=== PATIENT | male | born 1950 | race Hispanic/Latino ===

== ENCOUNTER → 2018-05-02 | Outpatient (CLI) | payer MEDICARE | END | disposition home or self-care (01) | LOC: RAH 08:07 | PROVIDERS: ATTEND Internal Medicine Cardiovascular Disease | DX: I65.23 Occlusion and stenosis of bilateral carotid arteries (principal); I99.8 Other disorder of circulatory system; I10 Essential (primary) hypertension | CPT/HCPCS: 78452; 93017; A9500 ×2 ==

== ENCOUNTER 2018-07-04 08:10 | Day surgery (SDC) | payer OTHER ==
[2018-07-01 12:12] LABS: BASOPHILS % (AUTO) 0.6 % (0.0-5.0); EOSINOPHILS % (AUTO) 2.6 % (0.0-8.0); HEMATOCRIT 39.5 % (42-54); LYMPHOCYTES % (AUTO) 33.4 % (21.0-51.0); MEAN CORPUSCULAR HEMOGLOBIN 27.5 pg (27.0-33.0); MEAN CORPUSCULAR HGB CONC 33.1 g/dL (32.0-36.0); NEUTROPHILS % (AUTO) 57.4 % (40.0-77.0); PLATELET COUNT (AUTO) 249 K/uL (130-400); RED BLOOD CELL COUNT(AUTO) 4.76 MIL/uL (4.50-6.20); RED CELL DISTRIBUTION WIDTH 13.6 % (11.0-15.5); WHITE BLOOD COUNT (AUTO) 5.9 K/uL (4.8-10.8)
[2018-07-01 12:24] LABS: CREATININE 0.7 mg/dL (0.5-1.5); INR 1.01 (0.85-1.15); PARTIAL THROMBOPLASTIN TIME 26.8 SEC (26.3-35.5); POTASSIUM 4.1 mmol/L (3.5-5.1); PROTHROMBIN TIME 10.6 SEC (9.6-11.6)
[2018-07-01 12:42] VITALS: BP 145/70
[2018-07-01 13:08] LABS: APPEARANCE,URINE Clear (CLEAR); BILIRUBIN,URINE Negative (NEGATIVE); COLOR,URINE Yellow (YELLOW); GLUCOSE, URINE (UA) Negative (NEGATIVE); KETONES,URINE Negative (NEGATIVE); LEUKOCYTE ESTERASE ,URINE Negative (NEGATIVE); NITRATE,URINE Negative (NEGATIVE); OCCULT BLOOD,URINE Negative (NEGATIVE); PROTEIN,URINE Negative (NEGATIVE)
[~2018-07-04] VITALS: Ht 177.8 cm; Wt 90.0 kg
[2018-07-04] VITALS (10 sets, daily range): BP systolic 129–153; BP diastolic 59–84
[~2018-07-04 08:10] MED LIST: CARB-38 PO; CLOP75TA14 PO; EZET10TA26 PO; FINA5TAB41 PO; LOSA100T58 PO; METF-446 PO; NITR0.4T50 SL; PROBIOTICS; ROPI2TAB2 PO; SODIUM CHLORIDE 0.9% 500ML 500 ML IV SCH; TAMS0.4C32 PO; VIT1CAPS47 PO; b12 PO
[2018-07-04] MEDS ORDERED: SODIUM CHLORIDE 0.9% 1000ML 1,000 ML IV ONE (08:48)
[2018-07-04] MEDS ORDERED: NITROGLYCERIN 5 MG/ML 10 ML VIAL IV ONE (09:58)
[2018-07-04] MEDS ORDERED: LIDOCAINE HCL-MPF 2% 10ML AMP IJ ONE (09:58)
[2018-07-04] MEDS ORDERED: IOHEXOL 350 MG/ML 100ML INFUS..BTL IV ONE (09:59)
[2018-07-04] MEDS ORDERED: IOHEXOL-350 50ML VIAL IV ONE (09:59)
[2018-07-04] MEDS ORDERED: MIDAZOLAM HCL 1 MG/ML 2ML VIAL ONE (10:56)
[2018-07-04] MEDS ORDERED: LABETALOL HCL 5 MG/ML 20ML VIAL IV ONE (11:08)
[2018-07-04] MEDS ORDERED: BIVALIRUDIN 250 MG/VIAL IV ONE (11:14)
[2018-07-04] MEDS ORDERED: SODIUM CHLORIDE 0.9% 1000ML 1,000 ML IV SCH (11:39)
[2018-07-04] MEDS ORDERED: ACETAMINOPHEN-CODEINE 300/30MG TAB PO PRN ×2 (11:45)
== END 2018-07-04 16:00 | disposition home or self-care (01) ==
LOC: DAH 08:10
PROVIDERS: ATTEND Internal Medicine Cardiovascular Disease
DX: I25.110 Atherosclerotic heart disease of native coronary artery with unstable angina pectoris (principal); Z95.5 Presence of coronary angioplasty implant and graft; Z79.899 Other long term (current) drug therapy; Z79.01 Long term (current) use of anticoagulants; I70.213 Atherosclerosis of native arteries of extremities with intermittent claudication, bilateral legs; E78.5 Hyperlipidemia, unspecified; I65.23 Occlusion and stenosis of bilateral carotid arteries; E11.51 Type 2 diabetes mellitus with diabetic peripheral angiopathy without gangrene; I10 Essential (primary) hypertension; Z82.49 Family history of ischemic heart disease and other diseases of the circulatory system; Z88.8 Allergy status to other drugs, medicaments and biological substances
CPT/HCPCS: 36415; 71045; 80048; 81003; 82948 ×2; 85025; 85610; 85730; 93005; 93458; A4606; C1760; C1894; J1644; J2250; J3490 ×3; J7030; Q9965 ×2; Q9967 ×2; 99156; 99157; J0583

== ENCOUNTER 2018-10-04 05:28 | Day surgery (SDC) | payer OTHER ==
[~2018-10-04] VITALS: Ht 165.1 cm; Wt 86.0 kg
[~2018-10-04 05:28] MED LIST changes: -EZET10TA26 PO; +EZET10TA48 PO; -SODIUM CHLORIDE 0.9% 500ML 500 ML IV SCH
[2018-10-04] MEDS ORDERED: SODIUM CHLORIDE 0.9% 1000ML 1,000 ML IV ONE (05:50)
[2018-10-04 06:14] VITALS: BP 139/73
[2018-10-04] MEDS ORDERED: PROPOFOL 1000 MG/100 ML 100 ML IV ONE (06:41)
[2018-10-04] MEDS ORDERED: LIDOCAINE HCL-MPF 2% 5ML VIAL ONE (06:41)
[2018-10-04] MEDS ORDERED: EPHEDRINE SULFATE 50 MG/ML AMPULE ONE (07:01)
[2018-10-04 07:08] VITALS: BP 108/53
[2018-10-04 07:13] VITALS: BP 113/59
[2018-10-04 07:18] VITALS: BP 126/64
[2018-10-04 07:23] VITALS: BP 128/63
[2018-10-04 07:28] VITALS: BP 119/60
--- NOTE | 2018-10-04 08:00 | NUR ---
PLAVIX PER MATTEO VILLAGRAN, DR. MILLER STATED TO HAVE PATIENT RESUME PLAVIX IN 48 HOURS. CALLED PT, SPOKE WITH , INSTRUCTED FOR PT TO RESUME PLAVIX IN 48 HOURS. VERBALIZED UNDERSTANDING.
== END 2018-10-04 07:45 | disposition home or self-care (01) ==
LOC: DAH 05:28 → ENDO 05:28
PROVIDERS: ATTEND Internal Medicine
DX: D12.0 Benign neoplasm of cecum (principal); D12.2 Benign neoplasm of ascending colon; K29.50 Unspecified chronic gastritis without bleeding; K64.0 First degree hemorrhoids; K57.30 Diverticulosis of large intestine without perforation or abscess without bleeding; Z86.010 Personal history of colon polyps; K21.0 Gastro-esophageal reflux disease with esophagitis; E78.5 Hyperlipidemia, unspecified; Z86.73 Personal history of transient ischemic attack (TIA), and cerebral infarction without residual deficits; I10 Essential (primary) hypertension
CPT/HCPCS: 43239; 45380; 82948 ×3; 93005; A4606; J2704; J3490 ×2; J7030

== ENCOUNTER 2019-11-07 05:53 | Day surgery (SDC) | payer MEDICARE ==
[~2019-11-07] VITALS: Ht 177.8 cm; Wt 90.7 kg
[~2019-11-07 05:53] MED LIST changes: -EZET10TA48 PO; -PROBIOTICS; -ROPI2TAB2 PO; +ROPI2TAB7 PO; -b12 PO
[2019-11-07] MEDS ORDERED: SODIUM CHLORIDE 0.9% 1000ML 1,000 ML IV ONE (06:12)
[2019-11-07 06:18] VITALS: BP 147/87
[2019-11-07] MEDS ORDERED: PHENYLEPHRINE HCL 10 MG/ML 1ML VIAL IV ONE (07:14)
[2019-11-07] MEDS ORDERED: EPINEPHRINE 1 MG/ML AMPULE ONE (07:14)
[2019-11-07] MEDS ORDERED: MIDAZOLAM HCL 1 MG/ML 2ML VIAL ONE (07:14)
[2019-11-07] MEDS ORDERED: LIDOCAINE HCL 1% 20 ML VIAL ONE (07:14)
[2019-11-07] MEDS ORDERED: PROPOFOL 10 MG/ML 20ML VIAL IV ONE (07:14)
[2019-11-07 07:40] VITALS: BP 109/64
[2019-11-07 07:45] VITALS: BP 122/68
[2019-11-07 07:50] VITALS: BP 124/68
[2019-11-07 07:55] VITALS: BP 128/69
[2020-02-15] MEDS ORDERED: EVOL140S2 SQ (17:29)
== END 2019-11-07 08:13 | disposition home or self-care (01) ==
LOC: DAH 05:53 → ENDO 05:53
PROVIDERS: ATTEND Internal Medicine
DX: K29.50 Unspecified chronic gastritis without bleeding (principal); K31.89 Other diseases of stomach and duodenum; K59.04 Chronic idiopathic constipation; Z87.19 Personal history of other diseases of the digestive system; Z11.59 Encounter for screening for other viral diseases; I10 Essential (primary) hypertension; E11.9 Type 2 diabetes mellitus without complications; E78.5 Hyperlipidemia, unspecified; K21.9 Gastro-esophageal reflux disease without esophagitis; G20 Parkinson's disease; Z86.73 Personal history of transient ischemic attack (TIA), and cerebral infarction without residual deficits; I25.10 Atherosclerotic heart disease of native coronary artery without angina pectoris; Z86.010 Personal history of colon polyps
CPT/HCPCS: 36415; 43239; 82948 ×2; 93005; A4215; A4221; A4222; A4223; A4606; A4620; A4657; A4663; J0171; J2250; J2370; J2704; J7030; U0003; 43200

== ENCOUNTER → 2020-02-07 | Outpatient (CLI) | payer MEDICARE ==
[~2020-02-07] MED LIST changes: +AMLO5TAB9 PO; +CYAN100099 PO; +DUTA0.5C18 PO; +EVOL140S2 SQ; +HYDR-3421 PO; +HYDR25TA PO; +ISOS60TA4 PO; +LINA145C PO; +LOSA25TA2 PO; +METO-391 PO; +PANT40TA54 PO; +TRAZ-185 PO; +[UNRECOGNIZED DRUG - CODE] PO
== END | disposition home or self-care (01) ==
LOC: SHCH 08:46
PROVIDERS: ATTEND Internal Medicine Cardiovascular Disease
DX: I65.21 Occlusion and stenosis of right carotid artery (principal); R97.0 Elevated carcinoembryonic antigen [CEA]; Z95.828 Presence of other vascular implants and grafts
CPT/HCPCS: 93880

== ENCOUNTER 2020-02-16 07:30 | Day surgery (SDC) | payer MEDICARE ==
[2020-02-13 10:00] VITALS: BP 110/64
[2020-02-13 11:11] LABS: BASOPHILS % (AUTO) 0.2 % (0.0-5.0); EOSINOPHILS % (AUTO) 3.5 % (0.0-8.0); HEMATOCRIT 35.9 % (42-54); LYMPHOCYTES % (AUTO) 30.3 % (21.0-51.0); MEAN CORPUSCULAR HEMOGLOBIN 28.3 pg (27.0-33.0); MEAN CORPUSCULAR HGB CONC 33.7 g/dL (32.0-36.0); MEAN CORPUSCULAR VOLUME 83.9 fL (79-99); MONOCYTES % (AUTO) 6.1 % (3.0-13.0); NEUTROPHILS % (AUTO) 59.7 % (40.0-77.0); PLATELET COUNT (AUTO) 245 K/uL (130-400); RED BLOOD CELL COUNT(AUTO) 4.28 MIL/uL (4.50-6.20); WHITE BLOOD COUNT (AUTO) 6.3 K/uL (4.8-10.8)
[2020-02-13 11:14] LABS: CREATININE 0.8 mg/dL (0.5-1.5); POTASSIUM 4.1 mmol/L (3.5-5.1)
[2020-02-15 17:09] VITALS: BP 110/64
[~2020-02-16] VITALS: Ht 177.8 cm; Wt 89.9 kg
[2020-02-16] VITALS (11 sets, daily range): BP systolic 101–177; BP diastolic 50–92
[2020-02-16] MEDS: CEFAZOLIN SODIUM 1 GM VIAL IVP SCH ×2 (06:00→11:41)
[~2020-02-16 07:30] MED LIST changes: -AMLO5TAB9 PO; -CYAN100099 PO; -DUTA0.5C18 PO; -HYDR-3421 PO; -HYDR25TA PO; -ISOS60TA4 PO; -LINA145C PO; -LOSA25TA2 PO; -METO-391 PO; -PANT40TA54 PO; +SODIUM CHLORIDE 0.9% 500ML 500 ML IV SCH; -TRAZ-185 PO; -[UNRECOGNIZED DRUG - CODE] PO
[2020-02-16] MEDS ORDERED: SODIUM CHLORIDE 0.9% 1000ML 1,000 ML IV ONE (08:06)
[2020-02-16] MEDS ORDERED: HYDR-3421 PO (08:39)
[2020-02-16] MEDS ORDERED: TRAZ-185 PO (08:39)
[2020-02-16] MEDS ORDERED: HYDR25TA PO (08:39)
[2020-02-16] MEDS ORDERED: METO-391 PO (08:39)
[2020-02-16] MEDS ORDERED: LOSA25TA2 PO (08:39)
[2020-02-16] MEDS ORDERED: AMLO-257 PO (08:39)
[2020-02-16] MEDS ORDERED: PANT40TA54 PO (08:39)
[2020-02-16] MEDS ORDERED: LINA145C PO (08:39)
[2020-02-16] MEDS ORDERED: DUTA0.5C18 PO (08:39)
[2020-02-16] MEDS ORDERED: ISOS60TA4 PO (08:39)
[2020-02-16] MEDS ORDERED: CYAN100099 PO (08:39)
[2020-02-16] MEDS ORDERED: ROPI2TAB7 PO (08:43)
[2020-02-16] MEDS ORDERED: [UNRECOGNIZED DRUG - CODE] PO (08:44)
[2020-02-16] MEDS ORDERED: BUPIVACAINE/PF 0.5% 10ML VIAL ONE (10:00)
[2020-02-16] MEDS ORDERED: FENTANYL CITRATE PF 50 MCG/1 ML 2ML VIAL ONE (11:34)
[2020-02-16] MEDS ORDERED: MIDAZOLAM HCL 1 MG/ML 2ML VIAL ONE (11:34)
[2020-02-16] MEDS ORDERED: PROPOFOL 10 MG/ML 20ML VIAL IV ONE (11:38)
[2020-02-16] MEDS ORDERED: LIDOCAINE HCL 1% 20 ML VIAL ONE (11:43)
== END 2020-02-16 13:37 | disposition home or self-care (01) ==
LOC: DAH 07:30
PROVIDERS: ATTEND Surgery
DX: L72.3 Sebaceous cyst (principal); Z20.828 Contact with and (suspected) exposure to other viral communicable diseases; E10.9 Type 1 diabetes mellitus without complications; I10 Essential (primary) hypertension; E78.00 Pure hypercholesterolemia, unspecified
CPT/HCPCS: 11404; 36415; 80048; 82948 ×2; 85025; 88304; 88341; 88342; 93005; A4213; A4215; A4221; A4222; A4223; A4452; A4663; A4930; A6260; C9803; J0690; J2250; J2704; J3010; J3490; J7030 ×2; J7040; U0003

== ENCOUNTER 2020-05-13 17:58 | Emergency (ER) | payer MEDICARE ==
[~2020-05-13 17:58] MED LIST changes: +AMLO-257 PO; -CARB-38 PO; +CYAN100099 PO; +DUTA0.5C37 PO; -FINA5TAB41 PO; +HYDR-3421 PO; +HYDR25TA PO; +ISOS60TA77 PO; +LINA145C PO; -LOSA100T58 PO; +LOSA25TA2 PO; +METO-391 PO; +PANT40TA54 PO; -SODIUM CHLORIDE 0.9% 500ML 500 ML IV SCH; +TRAZ-185 PO; -VIT1CAPS47 PO; +[UNRECOGNIZED DRUG - CODE] PO
[2020-05-13 18:47] LABS: BASOPHILS % (AUTO) 0.3 % (0.0-5.0); EOSINOPHILS % (AUTO) 2.5 % (0.0-8.0); HEMATOCRIT 39.2 % (42-54); MEAN CORPUSCULAR HEMOGLOBIN 27.8 pg (27.0-33.0); MEAN CORPUSCULAR HGB CONC 33.7 g/dL (32.0-36.0); MEAN CORPUSCULAR VOLUME 82.7 fL (79-99); MONOCYTES % (AUTO) 6.5 % (3.0-13.0); NEUTROPHILS % (AUTO) 64.5 % (40.0-77.0); PLATELET COUNT (AUTO) 260 K/uL (130-400); RED BLOOD CELL COUNT(AUTO) 4.74 MIL/uL (4.50-6.20); RED CELL DISTRIBUTION WIDTH 12.3 % (11.0-15.5); WHITE BLOOD COUNT (AUTO) 8.7 K/uL (4.8-10.8)
[2020-05-13 19:04] LABS: INR 0.99 (0.85-1.15); PROTHROMBIN TIME 10.6 SEC (9.6-11.6)
[2020-05-13 19:05] LABS: PARTIAL THROMBOPLASTIN TIME 24.7 SEC (26.3-35.5)
[2020-05-13 19:10] LABS: APPEARANCE,URINE TURBID (CLEAR); BILIRUBIN,URINE SMALL (NEGATIVE); COLOR,URINE RED (YELLOW); GLUCOSE, URINE (UA) NEGATIVE (NEGATIVE); KETONES,URINE 5 mg/dL (NEGATIVE); LEUKOCYTE ESTERASE ,URINE NEGATIVE (NEGATIVE); NITRATE,URINE NEGATIVE (NEGATIVE); OCCULT BLOOD,URINE LARGE (NEGATIVE); PROTEIN,URINE 100 mg/dL (NEGATIVE)
[2020-05-13 19:13] LABS: ALBUMIN 3.9 g/dL (3.5-5.0); BILIRUBIN,TOTAL 0.5 mg/dL (0.2-1.0); CREATININE 0.8 mg/dL (0.5-1.5); POTASSIUM 4.1 mmol/L (3.5-5.1)
[2020-05-13 19:15] LABS: BACTERIA,URINE Few /HPF (None Seen); RBC,URINE TNTC /HPF (0-1); WBC,URINE 0-1 /HPF (0-1)
[2020-05-13 19:16] LABS: SQUAMOUS EPITHELIAL CELL,UR None Seen /HPF (0-2)
[2020-05-13] MEDS ORDERED: CEPHALEXIN 500 MG CAPSULE ONE (21:15)
== END 2020-05-13 21:20 | disposition home or self-care (01) ==
LOC: EDH 17:58
DX: R31.0 Gross hematuria (principal); S70.11XA Contusion of right thigh, initial encounter; E11.9 Type 2 diabetes mellitus without complications; I10 Essential (primary) hypertension; W18.39XA Other fall on same level, initial encounter; Y93.89 Activity, other specified; Y92.89 Other specified places as the place of occurrence of the external cause; Y99.8 Other external cause status
CPT/HCPCS: 36415; 74176; 80053; 81001; 85025; 85610; 85730; 87088

== ENCOUNTER 2021-07-18 07:18 | Day surgery (SDC) | payer MEDICARE ==
[2021-07-16 15:22] LABS: BASOPHILS % (AUTO) 0.2 % (0.0-5.0); EOSINOPHILS % (AUTO) 1.4 % (0.0-8.0); HEMATOCRIT 36.8 % (42-54); LYMPHOCYTES % (AUTO) 20.1 % (21.0-51.0); MEAN CORPUSCULAR HGB CONC 32.6 g/dL (32.0-36.0); MEAN CORPUSCULAR VOLUME 82.9 fL (79-99); MONOCYTES % (AUTO) 5.9 % (3.0-13.0); NEUTROPHILS % (AUTO) 72.2 % (40.0-77.0); PLATELET COUNT (AUTO) 244 K/uL (130-400); RED BLOOD CELL COUNT(AUTO) 4.44 MIL/uL (4.50-6.20); RED CELL DISTRIBUTION WIDTH 12.9 % (11.0-15.5); WHITE BLOOD COUNT (AUTO) 8.6 K/uL (4.8-10.8)
[2021-07-16 15:31] LABS: APPEARANCE,URINE Clear (CLEAR); BILIRUBIN,URINE Negative (NEGATIVE); COLOR,URINE Dark Yellow (YELLOW); GLUCOSE, URINE (UA) Negative (NEGATIVE); KETONES,URINE Trace mg/dL (NEGATIVE); LEUKOCYTE ESTERASE ,URINE Trace (NEGATIVE); NITRATE,URINE Negative (NEGATIVE); OCCULT BLOOD,URINE Negative (NEGATIVE); PROTEIN,URINE Negative (NEGATIVE)
[2021-07-16 15:34] LABS: INR 1.13 (0.85-1.15); PROTHROMBIN TIME 12.2 SEC (9.6-11.6)
[2021-07-16 15:36] LABS: CREATININE 1.3 mg/dL (0.5-1.5); PARTIAL THROMBOPLASTIN TIME 25.2 SEC (26.3-35.5); POTASSIUM 4.3 mmol/L (3.5-5.1)
[2021-07-16 15:46] LABS: BACTERIA,URINE Rare /HPF (None Seen); RBC,URINE 0-1 /HPF (0-1); SQUAMOUS EPITHELIAL CELL,UR 0-2 /HPF (0-2); WBC,URINE 0-1 /HPF (0-1)
[2021-07-17 13:50] VITALS: BP 162/79
[~2021-07-18] VITALS: Ht 177.8 cm; Wt 92.8 kg
[2021-07-18] VITALS (8 sets, daily range): BP systolic 110–137; BP diastolic 60–76
[~2021-07-18 07:18] MED LIST changes: +0.9% NACL 500ML IV.SOLN 500 ML IV SCH; +AEC81 PO; -DUTA0.5C37 PO; -EVOL140S2 SQ; +FENO145T26 PO; +FINA5TAB41 PO; -HYDR-3421 PO; -HYDR25TA PO; -LOSA25TA2 PO; +LOSA50TA64 PO; -NITR0.4T50 SL; +RANO500T6 PO; -TRAZ-185 PO
[2021-07-18] MEDS ORDERED: 0.9%NACL 1000ML 1,000 ML IV ONE (07:52)
[2021-07-18] MEDS ORDERED: IOHEXOL-350 50ML VIAL IV ONE (08:53)
[2021-07-18] MEDS ORDERED: IOHEXOL-350 75 ML VIAL IV ONE (08:53)
[2021-07-18] MEDS ORDERED: MIDAZOLAM HCL 1 MG/ML 2ML VIAL ONE (08:53)
[2021-07-18] MEDS ORDERED: FENTANYL CITRATE PF 50 MCG/1 ML 2ML VIAL ONE (08:53)
[2021-07-18] MEDS ORDERED: LIDOCAINE HCL 400MG/20ML VIAL ONE (08:54)
[2021-07-18] MEDS ORDERED: NITROGLYCERIN 50MG VIAL ONE (08:54)
[2021-07-18] MEDS ORDERED: 0.9%NACL 1000ML 1,000 ML IV SCH (11:00)
[2021-07-18] MEDS ORDERED: DEXTROSE 50%-WATER 50 ML DISP.SYRIN IV PRN (11:00)
[2021-07-18] MEDS ORDERED: GLUCAGON 1MG KIT 1 MG ML IM PRN (11:00)
[2021-07-18] MEDS ORDERED: INSULIN HUMULIN R 100 UNIT/ML 3ML SQ SCH (11:30)
== END 2021-07-18 14:50 | disposition home or self-care (01) ==
LOC: DAH 07:18
PROVIDERS: ATTEND Internal Medicine Cardiovascular Disease
DX: I25.118 Atherosclerotic heart disease of native coronary artery with other forms of angina pectoris (principal); I25.82 Chronic total occlusion of coronary artery; T82.855A Stenosis of coronary artery stent, initial encounter; I77.9 Disorder of arteries and arterioles, unspecified; I10 Essential (primary) hypertension; G20 Parkinson's disease; E78.2 Mixed hyperlipidemia; E11.59 Type 2 diabetes mellitus with other circulatory complications; Z86.73 Personal history of transient ischemic attack (TIA), and cerebral infarction without residual deficits; Z95.5 Presence of coronary angioplasty implant and graft; Z79.01 Long term (current) use of anticoagulants; Z79.84 Long term (current) use of oral hypoglycemic drugs; Z79.82 Long term (current) use of aspirin; Y83.8 Other surgical procedures as the cause of abnormal reaction of the patient, or of later complication, without mention of misadventure at the time of the procedure
CPT/HCPCS: 36415; 71045; 80048; 81001; 82948 ×2; 85025; 85610; 85730; 93458; A4215; A4216; A4221; A4222; A4223 ×3; A4606; A4663; C1760; C1894 ×2; J1644; J2250; J3010; J3490; J7030; Q9965 ×2; Q9967 ×2; 93005; 96360; 96361; 99156; 99157

== ENCOUNTER 2021-07-31 09:00 | Inpatient (IN) | payer MEDICARE ==
[~2021-07-31] VITALS: Ht 177.8 cm; Wt 80.3 kg
[~2021-07-31 09:00] MED LIST changes: -0.9% NACL 500ML IV.SOLN 500 ML IV SCH; -CLOP75TA14 PO
[2021-07-31 11:36] LABS: ABG BASE EXCESS -1.1 mmol/L (-2.0-3.0); ABG HCO3 23.5 mmol/L (21.0-28.0); ABG OXYGEN SATURATION 96.6 % (95.0-99.0); ABG PCO2 39 mmHg (35-48)
[2021-07-31 12:02] LABS: BASOPHILS % (AUTO) 0.5 % (0.0-5.0); EOSINOPHILS % (AUTO) 2.6 % (0.0-8.0); HEMATOCRIT 39.6 % (42-54); LYMPHOCYTES % (AUTO) 26.2 % (21.0-51.0); MEAN CORPUSCULAR HEMOGLOBIN 27.9 pg (27.0-33.0); MEAN CORPUSCULAR HGB CONC 32.6 g/dL (32.0-36.0); MEAN CORPUSCULAR VOLUME 85.5 fL (79-99); MONOCYTES % (AUTO) 5.9 % (3.0-13.0); NEUTROPHILS % (AUTO) 64.5 % (40.0-77.0); PLATELET COUNT (AUTO) 299 K/uL (130-400); RED BLOOD CELL COUNT(AUTO) 4.63 MIL/uL (4.50-6.20); RED CELL DISTRIBUTION WIDTH 13.4 % (11.0-15.5); WHITE BLOOD COUNT (AUTO) 6.1 K/uL (4.8-10.8)
[2021-07-31 12:10] LABS: HEMOGLOBIN A1C 6.6 % (4.0-6.0)
[2021-07-31 12:13] LABS: INR 1.1 (0.85-1.15); PROTHROMBIN TIME 11.9 SEC (9.6-11.6)
[2021-07-31 12:14] LABS: BILIRUBIN,TOTAL 0.4 mg/dL (0.2-1.0); CREATININE 1.1 mg/dL (0.5-1.5); PARTIAL THROMBOPLASTIN TIME 24.8 SEC (26.3-35.5); POTASSIUM 4.5 mmol/L (3.5-5.1); TOTAL PROTEIN, SERUM 7.1 g/dL (6.0-8.3)
[2021-08-01] MEDS ORDERED: CLOP75TA32 PO (09:45)
[2021-08-04] VITALS (19 sets, daily range): BP systolic 108–154; BP diastolic 45–84
[2021-08-04] MEDS ORDERED: AMINOCAPROIC ACID 5,000MG VIAL 15,000 MG in 0.9% NACL 500ML IV.SOLN 420 ML IV PRN (07:00)
[2021-08-04] MEDS ORDERED: CEFAZOLIN SODIUM 1 GM VIAL ONE (07:00)
[2021-08-04] MEDS ORDERED: EPINEPHRINE PF 1MG AMP 10 MG in 0.9% NACL 250ML 240 ML IV PRN ×2 (07:00→16:00)
[2021-08-04] MEDS ORDERED: NOREPINEPHRIN 8MG/250ML NS PMX 250 ML IV PRN (07:00)
[2021-08-04] MEDS ORDERED: PAPAVERINE HCL 30 MG/ML 2ML VIAL ONE (07:00)
[2021-08-04] MEDS ORDERED: NITROGLYCERIN 50MG/D5W 250ML 1 BOT ONE (07:34)
[2021-08-04] MEDS ORDERED: 0.9%NACL 1000ML 1,000 ML IV ONE (08:06)
[2021-08-04] MEDS: CEFAZOLIN SODIUM 1 GM VIAL IVP SCH ×2 (08:20→13:52)
[2021-08-04] MEDS ORDERED: LIDOCAINE PF 100MG/5ML (2%) SYRINGE 5ML ONE ×2 (13:28→15:34)
[2021-08-04] MEDS ORDERED: EPINEPHRINE PF 1MG AMP ONE (13:28)
[2021-08-04] MEDS ORDERED: SODIUM BICARB 50MEQ 50ML VIAL 150 ML ONE (13:28)
[2021-08-04] MEDS ORDERED: ESMOLOL HCL 10 MG/ML 10 ML VIAL ONE (13:28)
[2021-08-04] MEDS ORDERED: NOREPINEPHRINE BITARTRATE 1 MG/1 ML ML IV ONE (13:28)
[2021-08-04] MEDS ORDERED: AMINOCAPROIC ACID 5,000MG VIAL ONE (13:28)
[2021-08-04] MEDS ORDERED: PROTAMINE SULFATE 10 MG/ML 25ML VIAL IV ONE (13:28)
[2021-08-04] MEDS ORDERED: HEPARIN 10,000 UNIT/10ML (1,000 UNIT/ML) VIAL ONE ×2 (13:28→13:52)
[2021-08-04] MEDS ORDERED: FENTANYL CITRATE PF 50 MCG/1 ML 20ML VIAL IJ ONE (13:29)
[2021-08-04] MEDS ORDERED: PROPOFOL 10 MG/ML 20ML VIAL IV ONE (13:29)
[2021-08-04] MEDS ORDERED: MIDAZOLAM HCL 1 MG/ML 2ML VIAL ONE (13:29)
[2021-08-04] MEDS ORDERED: ROCURONIUM 10MG/1ML SYR 10 MG/ML ML ONE ×2 (13:29→13:32)
[2021-08-04] MEDS ORDERED: ETOMIDATE 20MG VIAL ONE (13:31)
[2021-08-04 14:28] LABS: ABG BASE EXCESS -4.5 mmol/L (-2.0-3.0); ABG HCO3 20.3 mmol/L (21.0-28.0); ABG OXYGEN SATURATION 99.1 % (95.0-99.0); ABG PCO2 36 mmHg (35-48)
[2021-08-04] MEDS ORDERED: POTASSIUM CHLORIDE 20MEQ/100ML 300 ML IV ONE (14:34)
[2021-08-04] MEDS ORDERED: AMIODARONE 150MG VIAL ONE (14:35)
[2021-08-04 14:49] LABS: ABG BASE EXCESS 6.8 mmol/L (-2.0-3.0); ABG HCO3 31.1 mmol/L (21.0-28.0); ABG OXYGEN SATURATION 98.7 % (95.0-99.0); ABG PCO2 43 mmHg (35-48)
[2021-08-04] MEDS ORDERED: VASOPRESSIN 20 UNITS/ML 1ML VIAL ONE (14:50)
[2021-08-04] MEDS ORDERED: ATROPINE 0.4MG VIAL IJ ONE (15:17)
[2021-08-04 15:57] LABS: ABG BASE EXCESS -2.5 mmol/L (-2.0-3.0); ABG HCO3 21.2 mmol/L (21.0-28.0); ABG OXYGEN SATURATION 99.1 % (95.0-99.0); ABG PCO2 33 mmHg (35-48)
[2021-08-04] MEDS ORDERED: MORPHINE 4 MG SYG IV PRN (16:00)
[2021-08-04] MEDS ORDERED: PROPOFOL 1000 MG/100 ML 100 ML IV PRN (16:00)
[2021-08-04] MEDS ORDERED: INSULIN REGULAR, HUMAN 3ML 100 UNIT in 0.9%NACL 100ML 99 ML IV SCH ×2 (16:00)
[2021-08-04] MEDS ORDERED: AMINOCAPROIC ACID 5,000MG VIAL 15,000 MG in 0.9% NACL 250ML 250 ML IV SCH (16:00)
[2021-08-04] MEDS ORDERED: ONDANSETRON 4MG INJ IV PRN (16:00)
[2021-08-04] MEDS ORDERED: DEXTROSE 50%-WATER 50 ML DISP.SYRIN IV PRN (16:00)
[2021-08-04] MEDS ORDERED: TRAMADOL HCL 50 MG TABLET PO PRN (16:00)
[2021-08-04] MEDS ORDERED: 0.9%NACL 1000ML 1,000 ML IV SCH (16:00)
[2021-08-04] MEDS ORDERED: ACETAMINOPHEN 650 MG SUPPOSITORY RC PRN (16:00)
[2021-08-04] MEDS ORDERED: CALCIUM GLUC 1GM 1 GM in 0.9%NACL 50ML 50 ML IV PRN (16:00)
[2021-08-04] MEDS ORDERED: MORPHINE 2 MG SYG IV PRN (16:00)
[2021-08-04] MEDS ORDERED: 0.9% NACL 500ML IV.SOLN 500 ML IV SCH (16:00)
[2021-08-04] MEDS ORDERED: NOREPINEPHRIN 4MG/NS 250ML 250 ML IV PRN (16:00)
[2021-08-04] MEDS ORDERED: 0.9%NACL 10ML VIAL IVP PRN (16:00)
[2021-08-04] MEDS ORDERED: ALBUMIN (HUMAN) 5% 250 ML IV PRN (16:00)
[2021-08-04] MEDS ORDERED: POTASSIUM PHOS 15 mMOL+NS250ML 250 ML IV PRN (16:00)
[2021-08-04] MEDS ORDERED: GLUCAGON 1MG KIT 1 MG ML IM PRN (16:00)
[2021-08-04] MEDS ORDERED: SODIUM BICARB 50MEQ 50ML VIAL 100 ML ONE (16:04)
[2021-08-04] MEDS ORDERED: ALBUTEROL INHALER 90MCG/INH IH ONE (16:24)
[2021-08-04] MEDS ORDERED: ASPIRIN 81MG CHEW TAB NG ONE (17:00)
[2021-08-04 17:03] LABS: ABG BASE EXCESS 0.8 mmol/L (-2.0-3.0); ABG HCO3 23.9 mmol/L (21.0-28.0); ABG OXYGEN SATURATION 91.8 % (95.0-99.0); ABG PCO2 33 mmHg (35-48)
[2021-08-04] MEDS: ALBUTEROL 0.083% 2.5 MG/3 ML INH IH PRN ×2 (17:11→22:12)
[2021-08-04] MEDS: POTASSIUM CHLORIDE 20MEQ/100ML 100 ML IV PRN ×3 (17:16→23:59)
[2021-08-04 17:33] LABS: HEMATOCRIT 27.4 % (42-54); MEAN CORPUSCULAR HEMOGLOBIN 27.8 pg (27.0-33.0); MEAN CORPUSCULAR HGB CONC 33.2 g/dL (32.0-36.0); MEAN CORPUSCULAR VOLUME 83.8 fL (79-99); RED BLOOD CELL COUNT(AUTO) 3.27 MIL/uL (4.50-6.20); RED CELL DISTRIBUTION WIDTH 13.2 % (11.0-15.5); WHITE BLOOD COUNT (AUTO) 12.2 K/uL (4.8-10.8)
[2021-08-04 17:34] LABS: INR 1.37 (0.85-1.15); PROTHROMBIN TIME 14.5 SEC (9.6-11.6)
[2021-08-04 17:36] LABS: CREATININE 0.8 mg/dL (0.5-1.5); MAGNESIUM 1.2 mg/dL (1.80-2.40); PARTIAL THROMBOPLASTIN TIME 26.1 SEC (26.3-35.5); PHOSPHORUS 3.2 mg/dL (2.5-4.9); POTASSIUM 3.2 mmol/L (3.5-5.1)
[2021-08-04] MEDS: MAGNESIUM 2GM PREMIX 50ML 50 ML IV PRN (17:56)
[2021-08-04 18:42] LABS: ABG BASE EXCESS -0.3 mmol/L (-2.0-3.0); ABG HCO3 24.2 mmol/L (21.0-28.0); ABG OXYGEN SATURATION 96.1 % (95.0-99.0); ABG PCO2 39 mmHg (35-48)
[2021-08-04 18:44] LABS: MAGNESIUM 2.8 mg/dL (1.80-2.40); POTASSIUM 4.3 mmol/L (3.5-5.1)
[2021-08-04 19:56] LABS: ABG BASE EXCESS 0.9 mmol/L (-2.0-3.0); ABG OXYGEN SATURATION 94.9 % (95.0-99.0); ABG PCO2 38 mmHg (35-48)
[2021-08-04] MEDS: ACETAMINOPHEN 325 MG TAB PO PRN (20:16)
[2021-08-04] MEDS: FAMOTIDINE 20MG VIAL IV SCH (20:23)
[2021-08-04] MEDS: FENOFIBRATE NANOCRYSTALLIZED 145 MG TAB PO SCH (20:32)
[2021-08-04] MEDS: ROPINIROLE HCL 1 MG TABLET PO SCH (20:33)
[2021-08-04] MEDS: FINASTERIDE 5 MG TABLET PO SCH (20:34)
[2021-08-04] MEDS: CARBIDOPA LEVODOPA ENTA PO SCH (20:37)
[2021-08-04] MEDS: CEFAZOLIN SODIUM 1 GM VIAL IV SCH (20:46)
[2021-08-04 20:57] LABS: ABG BASE EXCESS 0.3 mmol/L (-2.0-3.0); ABG HCO3 25.3 mmol/L (21.0-28.0); ABG OXYGEN SATURATION 95.2 % (95.0-99.0); ABG PCO2 43 mmHg (35-48)
[2021-08-04 21:54] LABS: ABG BASE EXCESS -0.7 mmol/L (-2.0-3.0); ABG HCO3 24.5 mmol/L (21.0-28.0); ABG OXYGEN SATURATION 94.9 % (95.0-99.0); ABG PCO2 42 mmHg (35-48)
[2021-08-04] MEDS: TAMSULOSIN HCL 0.4 MG CAP.ER.24H PO SCH (23:23)
[2021-08-04 23:55] LABS: ABG BASE EXCESS -2.1 mmol/L (-2.0-3.0); ABG HCO3 23.7 mmol/L (21.0-28.0); ABG OXYGEN SATURATION 92.9 % (95.0-99.0); ABG PCO2 45 mmHg (35-48)
[2021-08-04] MEDS: SODIUM BICARB 50MEQ 50ML VIAL IV PRN (23:58)
[2021-08-04] MEDS: TRAMADOL HCL 50 MG TABLET PO PRN (23:59)
[2021-08-05] VITALS (24 sets, daily range): BP systolic 111–294; BP diastolic 49–289
[2021-08-05] MEDS: ALBUTEROL 0.083% 2.5 MG/3 ML INH IH PRN ×2 (02:45→15:46)
[2021-08-05 03:59] LABS: ABG BASE EXCESS 2.6 mmol/L (-2.0-3.0); ABG HCO3 28.5 mmol/L (21.0-28.0); ABG OXYGEN SATURATION 95.3 % (95.0-99.0); ABG PCO2 50 mmHg (35-48)
[2021-08-05] MEDS: POTASSIUM CHLORIDE 20MEQ/100ML 100 ML IV PRN ×2 (04:11→15:48)
[2021-08-05] MEDS: ACETAMINOPHEN 325 MG TAB PO PRN ×2 (04:31→19:18)
[2021-08-05 04:42] LABS: HEMATOCRIT 33.2 % (42-54); MEAN CORPUSCULAR HGB CONC 32.5 g/dL (32.0-36.0); RED BLOOD CELL COUNT(AUTO) 3.86 MIL/uL (4.50-6.20); RED CELL DISTRIBUTION WIDTH 13.7 % (11.0-15.5); WHITE BLOOD COUNT (AUTO) 12.1 K/uL (4.8-10.8)
[2021-08-05 04:50] LABS: CREATININE 1.2 mg/dL (0.5-1.5); INR 1.16 (0.85-1.15); MAGNESIUM 1.9 mg/dL (1.80-2.40); PHOSPHORUS 4.5 mg/dL (2.5-4.9); POTASSIUM 3.9 mmol/L (3.5-5.1); PROTHROMBIN TIME 12.5 SEC (9.6-11.6)
[2021-08-05 04:51] LABS: PARTIAL THROMBOPLASTIN TIME 24.6 SEC (26.3-35.5)
[2021-08-05] MEDS: CEFAZOLIN SODIUM 1 GM VIAL IV SCH ×2 (04:52→12:30)
[2021-08-05] MEDS: MAGNESIUM 2GM PREMIX 50ML 50 ML IV PRN (05:56)
[2021-08-05] MEDS: ZOSYN 3.375GM +NS 50ML IV SCH ×2 (08:50→17:22)
[2021-08-05] MEDS: FUROSEMIDE 20MG VIAL IV SCH ×2 (08:50→20:20)
[2021-08-05] MEDS: FAMOTIDINE 20MG VIAL IV SCH ×2 (08:50→19:19)
[2021-08-05] MEDS: TAMSULOSIN HCL 0.4 MG CAP.ER.24H PO SCH ×2 (08:51→19:19)
[2021-08-05] MEDS: ASPIRIN 81 MG EC TAB PO SCH (08:51)
[2021-08-05] MEDS: ROPINIROLE HCL 1 MG TABLET PO SCH ×3 (08:54→19:19)
[2021-08-05] MEDS: TRAMADOL HCL 50 MG TABLET PO PRN ×2 (08:55→15:05)
[2021-08-05] MEDS: CARBIDOPA LEVODOPA ENTA PO SCH ×3 (08:57→19:21)
[2021-08-05] MEDS: **HM**(Linaclotide (Linzess) 145 MCG) PO SCH (08:59)
[2021-08-05] MEDS: LOSARTAN 25 MG TABLET PO SCH (12:30)
[2021-08-05 13:00] LABS: ABG BASE EXCESS 0.5 mmol/L (-2.0-3.0); ABG OXYGEN SATURATION 91.5 % (95.0-99.0); ABG PCO2 45 mmHg (35-48)
[2021-08-05] MEDS: IPRATROPIUM/ALBUTEROL SULFATE 3 ML SOLUTION IH SCH ×2 (19:16→23:24)
[2021-08-05] MEDS: FENOFIBRATE NANOCRYSTALLIZED 145 MG TAB PO SCH (19:19)
[2021-08-05] MEDS: FINASTERIDE 5 MG TABLET PO SCH (19:19)
[2021-08-06] VITALS (18 sets, daily range): BP systolic 93–148; BP diastolic 44–83
[2021-08-06] MEDS: ZOSYN 3.375GM +NS 50ML IV SCH ×3 (00:05→20:49)
[2021-08-06 04:03] LABS: HEMATOCRIT 33.6 % (42-54); MEAN CORPUSCULAR HEMOGLOBIN 27.6 pg (27.0-33.0); MEAN CORPUSCULAR HGB CONC 32.1 g/dL (32.0-36.0); MEAN CORPUSCULAR VOLUME 85.9 fL (79-99); RED BLOOD CELL COUNT(AUTO) 3.91 MIL/uL (4.50-6.20); RED CELL DISTRIBUTION WIDTH 13.6 % (11.0-15.5); WHITE BLOOD COUNT (AUTO) 12.7 K/uL (4.8-10.8)
[2021-08-06 04:13] LABS: CREATININE 1.2 mg/dL (0.5-1.5); POTASSIUM 3.7 mmol/L (3.5-5.1)
[2021-08-06] MEDS: POTASSIUM CHLORIDE 20MEQ/100ML 100 ML IV PRN (05:20)
[2021-08-06] MEDS: INSULIN HUMULIN R 100 UNIT/ML 3ML SQ SCH ×4 (06:24→20:46)
[2021-08-06] MEDS: IPRATROPIUM/ALBUTEROL SULFATE 3 ML SOLUTION IH SCH ×4 (07:16→23:42)
[2021-08-06] MEDS: ASPIRIN 81 MG EC TAB PO SCH (07:49)
[2021-08-06] MEDS: FAMOTIDINE 20MG VIAL IV SCH (07:49)
[2021-08-06] MEDS: TAMSULOSIN HCL 0.4 MG CAP.ER.24H PO SCH ×2 (07:49→20:49)
[2021-08-06] MEDS: LOSARTAN 25 MG TABLET PO SCH (07:49)
[2021-08-06] MEDS: FUROSEMIDE 20MG VIAL IV SCH (07:49)
[2021-08-06] MEDS: CARBIDOPA LEVODOPA ENTA PO SCH ×3 (07:51→20:55)
[2021-08-06] MEDS: **HM**(Linaclotide (Linzess) 145 MCG) PO SCH (07:51)
[2021-08-06] MEDS: ROPINIROLE HCL 1 MG TABLET PO SCH ×3 (07:55→20:50)
[2021-08-06] MEDS ORDERED: FUROSEMIDE 20MG VIAL IV ONE (08:30)
[2021-08-06] MEDS: METOPROLOL TARTRATE 25 MG TAB PO SCH ×2 (10:06→20:50)
[2021-08-06] MEDS ORDERED: POTASSIUM CHLORIDE 10% ELIXIR 20 MEQ/15 ML UDCUP PO PRN (13:00)
[2021-08-06] MEDS ORDERED: HEPARIN 10,000 UNIT/10ML (1,000 UNIT/ML) VIAL IV ONE (13:49)
[2021-08-06] MEDS: ACETAMINOPHEN 325 MG TAB PO PRN (20:16)
[2021-08-06] MEDS: FAMOTIDINE 20MG TAB PO SCH (20:50)
[2021-08-06] MEDS: FINASTERIDE 5 MG TABLET PO SCH (20:50)
[2021-08-06] MEDS: FENOFIBRATE NANOCRYSTALLIZED 145 MG TAB PO SCH (20:50)
[2021-08-06] MEDS ORDERED: FUROSEMIDE 40MG VIAL IV ONE (21:00)
[2021-08-07 00:05] VITALS: BP 123/64
[2021-08-07 03:57] LABS: HEMATOCRIT 34.9 % (42-54); MEAN CORPUSCULAR HEMOGLOBIN 27.8 pg (27.0-33.0); MEAN CORPUSCULAR HGB CONC 32.1 g/dL (32.0-36.0); MEAN CORPUSCULAR VOLUME 86.6 fL (79-99); RED BLOOD CELL COUNT(AUTO) 4.03 MIL/uL (4.50-6.20); RED CELL DISTRIBUTION WIDTH 13.1 % (11.0-15.5); WHITE BLOOD COUNT (AUTO) 11.7 K/uL (4.8-10.8)
[2021-08-07 04:00] VITALS: BP 122/62
[2021-08-07 04:03] LABS: CREATININE 1.2 mg/dL (0.5-1.5); POTASSIUM 3.6 mmol/L (3.5-5.1)
[2021-08-07] MEDS: ZOSYN 3.375GM +NS 50ML IV SCH ×2 (05:00→12:34)
[2021-08-07] MEDS: INSULIN HUMULIN R 100 UNIT/ML 3ML SQ SCH ×2 (05:55→11:26)
[2021-08-07] MEDS: IPRATROPIUM/ALBUTEROL SULFATE 3 ML SOLUTION IH SCH ×2 (06:22→11:39)
[2021-08-07 07:00] VITALS: BP 141/69
[2021-08-07] MEDS: FAMOTIDINE 20MG TAB PO SCH (08:39)
[2021-08-07] MEDS: TAMSULOSIN HCL 0.4 MG CAP.ER.24H PO SCH (08:40)
[2021-08-07] MEDS: LOSARTAN 25 MG TABLET PO SCH (08:40)
[2021-08-07] MEDS: ASPIRIN 81 MG EC TAB PO SCH (08:40)
[2021-08-07] MEDS: ROPINIROLE HCL 1 MG TABLET PO SCH ×2 (08:41→14:13)
[2021-08-07] MEDS: KCL 20 MEQ ERTAB PO PRN ×2 (08:42→10:53)
[2021-08-07] MEDS: **HM**(Linaclotide (Linzess) 145 MCG) PO SCH (08:46)
[2021-08-07] MEDS: CARBIDOPA LEVODOPA ENTA PO SCH ×2 (08:50→14:14)
[2021-08-07] MEDS: METOPROLOL TARTRATE 25 MG TAB PO SCH (08:54)
[2021-08-07] MEDS: ACETAMINOPHEN 325 MG TAB PO PRN (08:58)
[2021-08-07] MEDS ORDERED: FUROSEMIDE 20 MG TABLET PO SCH ×2 (09:00)
[2021-08-07] MEDS ORDERED: POLYETHYLENE GLYCOL 3350 17 GM POWD.PACK PO SCH (10:00)
[2021-08-07] MEDS ORDERED: FUROSEMIDE 20MG VIAL IV SCH (10:00)
[2021-08-07 11:00] VITALS: BP 123/69
[2021-08-07] MEDS ORDERED: AMOX/CLAV 500/125MG TAB PO SCH (14:00)
[2021-08-08] MEDS ORDERED: ENOXAPARIN SODIUM 30 MG/0.3 ML SQ SCH (09:00)
== END 2021-08-07 16:00 | disposition left against medical advice (07) | DRG 235 ==
LOC: EDSTATUS 09:00 → DAHIP 08-04 06:46 → 2CV 08-04 10:58 → 2BH 08-05 06:23
PROVIDERS: ADMIT Thoracic Surgery (Cardiothoracic Vascular Surgery); ATTEND Thoracic Surgery (Cardiothoracic Vascular Surgery)
PROC: 5A09457 Assistance with Respiratory Ventilation, 24-96 Consecutive Hours, Continuous Positive Airway Pressure (ICD-10-PCS; 2021-08-04)
PROC: 02100Z9 Bypass Coronary Artery, One Artery from Left Internal Mammary, Open Approach (ICD-10-PCS; principal; 2021-08-04 13:28)
PROC: 021109W Bypass Coronary Artery, Two Arteries from Aorta with Autologous Venous Tissue, Open Approach (ICD-10-PCS; 2021-08-04 13:28)
PROC: 06BQ4ZZ Excision of Left Saphenous Vein, Percutaneous Endoscopic Approach (ICD-10-PCS; 2021-08-04 13:28)
PROC: 5A09357 Assistance with Respiratory Ventilation, Less than 24 Consecutive Hours, Continuous Positive Airway Pressure (ICD-10-PCS; 2021-08-06)
PROC: 5A0935A Assistance with Respiratory Ventilation, Less than 24 Consecutive Hours, High Flow/Velocity Cannula (ICD-10-PCS; 2021-08-06)
PROC: 5A09357 Assistance with Respiratory Ventilation, Less than 24 Consecutive Hours, Continuous Positive Airway Pressure (ICD-10-PCS; 2021-08-07)
PROC: 5A0935A Assistance with Respiratory Ventilation, Less than 24 Consecutive Hours, High Flow/Velocity Cannula (ICD-10-PCS; 2021-08-07)
DX: I25.10 Atherosclerotic heart disease of native coronary artery without angina pectoris (principal); J96.01 Acute respiratory failure with hypoxia; J95.1 Acute pulmonary insufficiency following thoracic surgery; J81.0 Acute pulmonary edema; J98.11 Atelectasis; E11.51 Type 2 diabetes mellitus with diabetic peripheral angiopathy without gangrene; G20 Parkinson's disease; Z20.822 Contact with and (suspected) exposure to COVID-19; R41.0 Disorientation, unspecified; I11.9 Hypertensive heart disease without heart failure; E78.2 Mixed hyperlipidemia; Z79.899 Other long term (current) drug therapy; Z88.8 Allergy status to other drugs, medicaments and biological substances; Z95.5 Presence of coronary angioplasty implant and graft; Z86.73 Personal history of transient ischemic attack (TIA), and cerebral infarction without residual deficits
CPT/HCPCS: 36415; 36600; 70450; 71045; 71046; 80048; 80053; 80061; 82435; 82803; 82947; 82948; 83036; 83605; 83735; 84100; 84132; 84145; 84295; 84484; 85018; 85025; 85027; 85347; 85610; 85730; 86850; 86900; 86901; 86923; 87635; 93005; 93880; 94002; 94010; 94150; 94640; 94660; 94664; 97039; A7048; G0378; J0171; J0282; J0461; J0690; J1644; J1815; J1940; J2001; J2250; J2270; J2405; J2440; J2543; J2704; J2720; J3010; J3475; J3480; J3490; J7030; J7040; J7120

== ENCOUNTER → 2022-01-02 | Outpatient (CLI) | payer MEDICARE ==
[~2022-01-02] MED LIST changes: +CLOP75TA32 PO; +[UNRECOGNIZED DRUG - CODE] PO; -[UNRECOGNIZED DRUG - CODE] PO
== END | disposition home or self-care (01) ==
LOC: CANPRECLI → SHCH 09:11
PROVIDERS: ATTEND Internal Medicine Cardiovascular Disease
DX: R06.00 Dyspnea, unspecified (principal)
CPT/HCPCS: 93306

== ENCOUNTER → 2022-02-25 | Outpatient (CLI) | payer MEDICARE ==
[~2022-02-25] MED LIST changes: +ALBUTEROL 0.083% 2.5 MG/3 ML INH IH ONE
== END | disposition home or self-care (01) ==
LOC: CANSCHCLI → RESP 12:54
PROVIDERS: ATTEND Internal Medicine Cardiovascular Disease
DX: R06.00 Dyspnea, unspecified (principal)
CPT/HCPCS: 94060